=== PATIENT | male | born 1990 | race Hispanic/Latino ===

== ENCOUNTER 2023-05-14 19:19 | Emergency (ER) | payer BC ==
[~2023-05-14] VITALS: Ht 188 cm; Wt 111.1 kg
[2023-05-14 19:21] VITALS: BP 149/89; PULSE 58; RESP 16
[2023-05-14] MEDS ORDERED: CYCLOBENZAPRINE HCL 10 MG TABLET PO ONE (20:30)
[2023-05-14] MEDS ORDERED: KETOROLAC 30MG VIAL (30MG/ML) IM ONE (20:30)
[2023-05-14] MEDS ORDERED: IBUP-2077 PO (20:47)
[2023-05-14] MEDS ORDERED: CYCL10TA16 PO (20:47)
== END 2023-05-14 21:02 | disposition home or self-care (01) ==
LOC: EDH 19:23
DX: S46.011A Strain of muscle(s) and tendon(s) of the rotator cuff of right shoulder, initial encounter (principal); X58.XXXA Exposure to other specified factors, initial encounter; Y93.89 Activity, other specified; Y92.89 Other specified places as the place of occurrence of the external cause; Y99.8 Other external cause status
CPT/HCPCS: 99284; 73030; 96372; J1885